=== PATIENT | female | born 1945 | race Caucasian/White ===

== ENCOUNTER 2016-11-16 15:21 | Inpatient (IN) ==
[2016-11-16] MEDS ORDERED: M.V.I.-12 10 ML, FOLIC ACID 1 MG, MAGNESIUM SULFATE 1 GM, THIAMINE 100 MG in NS 1,000 ML IV ONE (16:00)
--- NOTE | 2016-11-16 16:14 | EKG Report ---
Test Performed on : 11/16/2016 3:51:50 PM Test Reason : Weakness Blood Pressure : / mmHG Vent. Rate : 078 BPM Atrial Rate : 068 BPM P-R Int : 000 ms QRS Dur : 084 ms QT Int : 410 ms P-R-T Axes : 000 -05 -36 degrees QTc Int : 467 ms Atrial fibrillation. with a competing junctional pacemaker. ST \T\ T wave abnormality, consider anterior ischemia Abnormal ECG When compared with ECG of 25-JUL-2016 10:27, Previous ECG has undetermined rhythm, needs review Confirmed by Blayne ELLIOTT, Johnson Dickerson ([id number]) on 11/16/2016 6:27:50 PM
[2016-11-16 16:30] LABS: MANUAL DIFF NEEDED? NO
[2016-11-16 16:34] LABS: BASO% 0.4 % (0.0-0.8); EOS# 0.02 X1000 (0.0-0.7); EOS% 0.3 % (0.0-10.0); HEMATOCRIT 34.3 % (37.0-47.0); HEMOGLOBIN 10.6 g/dL (12.0-16.0); LYMPH# 1.15 X1000 (1.2-3.4); LYMPH% 16.2 % (20.5-51.1); MCHC 30.9 g/dL (33-37); MCV 77.6 FL (81-99); MONO# 0.74 X1000 (0.11-0.59); MONO% 10.4 % (1.7-9.3); MPV 9.8 FL (7.4-10.4); NEUT% 72.7 % (42.2-75.2); PLT 274 X1000 (130-400); RBC 4.42 XMIL (4.2-5.4)
[2016-11-16 16:40] LABS: INR 1.26; PROTIME 13.4 Seconds (9.2-11.7); PTT 34.8 Seconds (22.0-36.0)
[2016-11-16 16:49] LABS: AGAP 18; ALBUMIN 3.8 g/dL (3.5-5.0); ALKALINE PHOSPHATASE 82 U/L (32-104); BUN 8 mg/dL (8-22); CALCIUM 9.7 mg/dL (8.8-10.2); CHLORIDE 97 mmol/L (98-107); COSMO 276; GOT 54 U/L (10-30); GPT 35 U/L (10-36); MAGNESIUM 1.7 mg/dL (1.5-2.7); POTASSIUM 3.6 mmol/L (3.5-5.1); SODIUM 139 mmol/L (136-145); TCO2 24 mmol/L (25-35); TOTAL PROTEIN 6.9 g/dL (6.3-8.3)
[2016-11-16 17:10] LABS: FREE T4 1.36 ng/dL (0.93-1.70)
[2016-11-16] MEDS: PROTONIX IV SCH (18:41)
[2016-11-16] MEDS: SODIUM CHLORIDE 0.9% INJ SCH (18:41)
[2016-11-16 19:10] LABS: URINE MICRO REVIEW NEEDED? NO; URINE SOURCE CLEAN CATCH
[2016-11-16 19:14] LABS: BILIRUBIN URINE NEGATIVE (NEGATIVE); BLOOD URINE SMALL (NEGATIVE); COLOR YELLOW; GLUCOSE URINE NEGATIVE (NEGATIVE); LEUKOCYTES URINE MODERATE (NEGATIVE); NITRITE URINE NEGATIVE (NEGATIVE); PH URINE 5.5; PROTEIN URINE TRACE mg/dL (NEGATIVE); SP GRAVITY URINE 1.044; TURBIDITY URINE HAZY (CLEAR); UR EPITHELIAL CELLS <10 /HPF (<10); URINE BACTERIA 3+ /HPF; URINE RBC 20-40 /HPF (<10); URINE WBC TNTC /HPF (<10); UROBILINOGEN URINE 2 mg/dL (NORMAL)
[2016-11-16] MEDS ORDERED: DULCOLAX PR ONE (19:39)
[2016-11-16] MEDS ORDERED: LIBRIUM PO PRN (19:45)
[2016-11-16] MEDS ORDERED: FLEET ENEMA PR ONE (19:57)
[2016-11-16] MEDS ORDERED: AMBIEN PO PRN (20:07)
--- NOTE | 2016-11-16 20:33 | HISTORY AND PHYSICAL ---
CHIEF COMPLAINT: Weakness. HISTORY OF PRESENT ILLNESS: Ms Strickland is a 71-year-old, white female patient, not doing well the last many days. The patient claims she was feeling weak, tired and no energy. Unsteady gait. Oral intake was variable. The patient claims she is still losing weight. She did have some chills. No fever. I recently evaluated patient. At that time, she had low-grade fever. I did workup. The patient found to have UTI and some bronchitis. I treated her with antibiotics. Patient claims she felt some better. Because of her weight loss, we did entertain possibility of Topamax-induced weight loss. The patient was seen by the neurologist who advised her to stopped taking her Topamax which improved her oral intake, but patient is still losing weight. The patient is a very vague and poor historian. She did have dull headache. No dysphagia or odynophagia. Vague abdominal pain. No diarrhea. At times constipation. Denied bleeding per rectum. Mild cough. No expectoration or hemoptysis. No dysuria. At times odor to her urine. She denied any vaginal discharge, spotting, bleeding. No heat or cold intolerance. No nosebleed. The patient does feel depressed, anxious. Patient was drinking heavily. Patient claimed last 2 weeks she stopped drinking completely. She did have some withdrawal, but patient claims she managed it at home. The patient promised me she did not drink any last 2 weeks except yesterday she had 1 drink. Her daughter was present during our conversation. She does have excessive sweating. No heat or cold intolerance. The patient does have complex history, continued weight loss, difficult to pinpoint. Compared to June patient lost around 25-30 pounds of weight. She did have upper and lower GI endoscopy done which was nonconclusive. Her recent chest x-ray did reveal atelectasis. Patient and family were concerned. I decided to admit her for monitoring and workup. I did offer her to go to a psychiatrist as an outpatient. Offered her help for alcohol rehabilitation, but patient refused. ALLERGIES: No known drug allergy. HOME MEDICATION: Lipitor, aspirin, Cymbalta, hydrochlorothiazide, Synthroid, beta blockers metoprolol, multivitamin, potassium, Xarelto. PAST MEDICAL HISTORY: Prosthetic heart valve and coronary artery disease. Hypertension. Hypothyroidism. Hyperlipidemia. Alcohol abuse. Osteoarthritis. Depression. Anxiety. PERSONAL HISTORY: Single. Nonsmoker. The patient used to drink heavily, claimed not drinking for last 2 weeks except 1 drink yesterday. Denied substance abuse. FAMILY HISTORY: Father of lung cancer. Mother of old age. There was questionable history of heart attack. The patient's brother had a stroke at early age. Sister with coronary artery disease. PHYSICAL EXAMINATION: GENERAL: Elderly white female patient who does look mildly cachectic and malnourished, in mild distress. VITAL SIGNS: On admission, blood pressure 163/90, pulse 95, respiration 18, temperature 98.4 degrees. SKIN: Senile turgor. No rash or petechiae. HEENT: Head atraumatic, normocephalic. [place] conjunctivae. Anicteric sclerae. Extraocular muscle movement normal. Fundus cannot be penetrated. Good oral hygiene. No tonsillopharyngeal congestion or exudate. Ears and nose benign. NECK: Supple. No JVD, thyromegaly or lymphadenopathy. CHEST: Bibasilar crepitation. No rales. CARDIOVASCULAR: S1 and S2 heard, 2/6 systolic murmur at the apex. No gallop or thrill. ABDOMEN: Soft, scaphoid. Bowel sounds present. No organomegaly or mass. EXTREMITIES: No cyanosis, clubbing. No acute DVT. Peripheral pulsation intact. STUDENT SERVICES VICE PRESIDENT: Alert, awake, able to move all 4 limbs. Crepitation both the knee joints. LABORATORY DATA: Her workup did reveal hemoglobin 10.6, hematocrit 34.3, MCV 77.6, WBC count 7.1, platelet count 274,000. PT/INR 1.26, PTT 34.8. Electrolytes: BUN 8, creatinine 0.7. AST 54, ALT was 35, TSH 1.95, free T4 1.36. Urinalysis did reveal urinary tract infection. Urine WBCs too numerous to count, 20-40 red blood cells, 3+ bacteria. CONSIDERATION: Patient admitted with weakness, very vague presentation. She does have significant weight loss. My differential includes occult malignancy. Did reveal urinary tract infection not responding to outpatient treatment. ASSESSMENT: 1. Weight loss. 2. Paroxysmal atrial fibrillation. 3. Prosthetic heart valve. 4. Depression. 5. Alcohol abuse. 6. The patient does have essential tremor. Her Topamax was recently discontinued. Her Cymbalta was increase. 7. Osteoarthritis. PLAN: I changed her admission from observation to inpatient because of urinary tract infection not responding to outpatient treatment. Her CT scan preliminary report, subsegmental atelectasis, constipation, cardiomegaly, no evidence of apparent malignancy. This was a preliminary report. I am going to start her on banana bag. Continue the rest of the treatment. IV antibiotics. Fall precaution. Overall plan discussed with the patient and family. They are in agreement. I am going to start her on Librium. The patient claims she is not drinking which considering her alcohol consumption to stop suddenly without help is difficult to believe. I will give her benefit of the doubt and give some support with Librium so she will not go into withdrawal. Fall precaution. cc: Gerald Balderas MD
[2016-11-16] MEDS: ROCEPHIN 1 GM/NS 1 GM/50 ML IVPB IV SCH (21:24)
[2016-11-16] MEDS: CYMBALTA PO SCH (21:25)
[2016-11-16] MEDS: LIPITOR PO SCH (21:26)
--- NOTE | 2016-11-17 06:35 | PROGRESS NOTE ---
DATE: 11/17/2016 SUBJECTIVE: Ms. Strickland is doing better. She denied any nausea or vomiting. The patient did have a bowel movement, the patient is not sure. According to patient, it was small. No blood or mucus in the stool. She denied any chest pain. She had low-grade fever. No nausea. Patient does get weak and dizzy when she gets up. Patient admitted with weakness and unsteady gait. Found to have a UTI. OBJECTIVE: Vital Signs: Her vital signs noted. At times, blood pressure was low. Neck: Supple. No JVD. Lungs: Bilateral good air entry present. Few basal crepitations. CVS: S1 and S2 heard. Abdomen: Soft, globular. Bowel sounds present. Extremities: No cyanosis, clubbing. No acute DVT. CUTCH CLEANER: Alert, awake. Able to move all 4 limbs. Laboratory: Patient's lab data done on admission noted. Urinalysis did reveal UTI. Started patient on IV antibiotics. I am going to continue IV fluid. Close observation. We will supplement thiamine. I had again discussed about her alcohol use and patient refused. PROBLEM LIST: 1. Urinary tract infection. 2. Postural dizziness. We will check postural vital signs. 3. History of alcohol abuse. 4. Prosthetic heart valve. 5. Paroxysmal atrial fibrillation. PLAN: CT scan, preliminary report noted. Discussed fall precaution. Overall plan discussed with the patient. She is in agreement. I did offer her psychiatric evaluation. Patient refused. cc: Gerald Balderas MD
--- NOTE | 2016-11-17 07:49 | Diag Imaging Result Doc PS360 ---
EXAM: THORAX/ABDOMEN/PELVIS HISTORY: Weakness TECHNIQUE: Six CT of the chest with intravenous contrast; CT of the abdomen with intravenous and oral contrast, all with dose reduction (clarity.) COMMENT: There are no previous CT examinations of the thorax. The current studies are compared with the previous abdominal study of 09/07/2016. There is some fibrosis in the posterior costophrenic sulci bilaterally which has not changed since the previous abdominal study. There is a subcentimeter nodule laterally in the left base on image 61 which was also present on the previous abdominal study. This was also present on the CT urogram of 08/27/2010. Otherwise has been there is no evidence of acute pulmonary parenchymal disease. There has been sternotomy. No abnormal fluid collections are present. There are granulomatous calcifications in right paratracheal and hilar nodes. There is cardiomegaly. There is extensive coronary atherosclerosis. There are postsurgical changes in the distal esophagus. CT of the abdomen with intravenous and oral contrast: There has been gastric bypass. Compared to the previous study of 09/07/2016 there has been apparent resolution of the mild interstitial pancreatitis seen around the head of the pancreas. The spleen adrenal glands and liver are stable in appearance. There is atherosclerotic change throughout the abdominal aorta which is otherwise stable since the previous study. There is also calcification in the superior mesenteric artery. The mesenteric vessels are patent. There is a stone present in the lower pole of the right renal collecting system. This was also present previously. Otherwise the kidneys are stable in appearance. There is no evidence of significant adenopathy or bowel obstruction. There continues to be diverticulosis particularly in the left colon. CT of the pelvis with intravenous and oral contrast: There is no evidence of appendicitis. There is no evidence of free fluid or masses. No significant adenopathy is present. The regional skeleton is stable in appearance. There is a fair amount of retained fecal debris in the rectum. IMPRESSION: 1. No evidence of acute disease in the chest. 2. Atherosclerosis, including the superior mesenteric artery. 3. Apparent improvement in interstitial pancreatitis since previous study of 09/07/2016. 4. Constipation. 5. Right nephrolithiasis. Electronically signed by Lester Subramanian 11/17/2016 7:47 AM
--- NOTE | 2016-11-17 07:51 | Diag Imaging Result Doc PS360 ---
CHEST-2 VIEWS - 11/16/2016 INDICATION: Weakness TECHNIQUE: COMPARISON: 11/04/2016 FINDINGS: Stable aortic valve replacement changes. Heart size and pulmonary vascularity are top normal. No focal infiltrates, pneumothorax, or pleural effusion. Stable surgical clips in the epigastrium. IMPRESSION: No acute disease or change from prior. Electronically signed by Eliu Dorantes 11/17/2016 7:48 AM
[2016-11-17] MEDS: LINZESS PO ONE ×2 (07:58→07:59)
[2016-11-17] MEDS: NS + KCL 20 MEQ 1,000 ML IV SCH ×2 (07:59→21:33)
[2016-11-17] MEDS: HYDROCHLOROTHIAZIDE PO SCH (08:35)
[2016-11-17] MEDS: ASPIRIN PO SCH (08:36)
[2016-11-17] MEDS: VITAMIN B-1 PO SCH (08:36)
[2016-11-17] MEDS: KLOR-CON PO SCH (08:36)
[2016-11-17] MEDS: THERA M PLUS PO SCH (08:37)
[2016-11-17] MEDS: CYMBALTA PO SCH ×2 (08:37→21:34)
[2016-11-17] MEDS: SYNTHROID PO SCH (08:37)
[2016-11-17] MEDS ORDERED: HYDROCHLOROTHIAZIDE PO SCH (09:00)
[2016-11-17] MEDS ORDERED: LOPRESSOR PO SCH (09:00)
[2016-11-17] MEDS: XARELTO PO SCH (16:46)
[2016-11-17] MEDS: PROTONIX IV SCH (16:46)
[2016-11-17] MEDS: SODIUM CHLORIDE 0.9% INJ SCH (16:46)
[2016-11-17] MEDS: ROCEPHIN 1 GM/NS 1 GM/50 ML IVPB IV SCH (21:34)
[2016-11-17] MEDS: LIPITOR PO SCH (21:34)
--- NOTE | 2016-11-18 07:34 | PROGRESS NOTE ---
DATE: 11/18/2016 SUBJECTIVE: Ms. Strickland is feeling better. She denied any high-grade fever or chills. No nausea or vomiting. Oral intake is improving. Her weakness is improving. No bleeding. The patient does have postural hypotension. OBJECTIVE: Vital Signs: Vital signs noted. Neck: Supple. No JVD. Lungs: Bilateral good air entry present. CVS: S1 and S2 heard. A 2/6 systolic murmur at the apex. Abdomen: Soft, globular. Bowel sounds present. LEAD MECHANICAL ENGINEER: Alert, awake. Able to move all 4 limbs. Laboratory Data: I am going to order labs today. PLAN: Continue rest of the treatment. I am going to add Remeron to help her depression and appetite. Change her Librium to p.r.n. Continue rest of the treatment. Discussed about fall precautions. Her urine culture result is pending. Overall plan discussed with the patient. She is in agreement. cc: Gerald Balderas MD
[2016-11-18 07:50] LABS: MANUAL DIFF NEEDED? NO
[2016-11-18 07:52] LABS: BASO% 0.9 % (0.0-0.8); EOS# 0.09 X1000 (0.0-0.7); EOS% 2.1 % (0.0-10.0); HEMATOCRIT 31.8 % (37.0-47.0); HEMOGLOBIN 9.5 g/dL (12.0-16.0); LYMPH# 1.45 X1000 (1.2-3.4); LYMPH% 33.6 % (20.5-51.1); MCH 23.5 PG (27-31); MCHC 29.9 g/dL (33-37); MCV 78.5 FL (81-99); MONO# 0.65 X1000 (0.11-0.59); MONO% 15.1 % (1.7-9.3); MPV 9.1 FL (7.4-10.4); NEUT% 48.3 % (42.2-75.2); PLT 242 X1000 (130-400); RBC 4.05 XMIL (4.2-5.4)
[2016-11-18 08:21] LABS: AGAP 12; ALBUMIN 3.4 g/dL (3.5-5.0); ALKALINE PHOSPHATASE 69 U/L (32-104); BUN 4 mg/dL (8-22); CALCIUM 8.8 mg/dL (8.8-10.2); CHLORIDE 105 mmol/L (98-107); COSMO 283; GOT 40 U/L (10-30); GPT 28 U/L (10-36); MAGNESIUM 1.9 mg/dL (1.5-2.7); POTASSIUM 3.6 mmol/L (3.5-5.1); SODIUM 144 mmol/L (136-145); TCO2 27 mmol/L (25-35); TOTAL BILIRUBIN 0.45 mg/dL (0.20-1.00); TOTAL PROTEIN 6.1 g/dL (6.3-8.3)
[2016-11-18] MEDS: KLOR-CON PO SCH (09:00)
[2016-11-18] MEDS: HYDROCHLOROTHIAZIDE PO SCH (09:00)
[2016-11-18] MEDS: THERA M PLUS PO SCH (09:00)
[2016-11-18] MEDS: VITAMIN B-1 PO SCH (09:00)
[2016-11-18] MEDS: SYNTHROID PO SCH (09:00)
[2016-11-18] MEDS: LOPRESSOR PO SCH ×3 (09:00→21:59)
[2016-11-18] MEDS ORDERED: LANOXIN IV ONE (09:30)
[2016-11-18] MEDS ORDERED: LANOXIN IV SCH (09:30)
--- NOTE | 2016-11-18 10:21 | EKG Report ---
Test Performed on : 11/18/2016 09:36:36 AM Test Reason : A-Fib Blood Pressure : / mmHG Vent. Rate : 092 BPM Atrial Rate : 079 BPM P-R Int : 000 ms QRS Dur : 084 ms QT Int : 352 ms P-R-T Axes : 000 -17 235 degrees QTc Int : [address] \T\ T wave abnormality, consider anterior ischemia Abnormal ECG When compared with ECG of 16-NOV-2016 15:51, No significant change was found Confirmed by Blayne ELLIOTT, Johnson Dickerson ([id number]) on 11/21/2016 12:38:19 PM
[2016-11-18] MEDS ORDERED: NS 1,000 ML IV SCH (11:44)
--- NOTE | 2016-11-18 12:26 | CONSULTATION ---
DATE OF CONSULTATION: 11/18/2016 INDICATION FOR THE CONSULTATION: Atrial fibrillation. HISTORY OF PRESENT ILLNESS: Ms. Strickland is a 71-year-old white female with a history of chronic atrial fibrillation, history of coronary artery bypass as well as aortic valve replacement secondary to aortic stenosis. She was admitted for what appears to be a diffuse myriad of complaints which can the best, I believe, summed up as failure to thrive. The patient has reported weight loss, decreased appetite, weakness, and general lethargy as well as an increased amount of alcohol intake. She reports 4-5 alcoholic drinks daily for several months up until around 2 weeks ago, when she quit. She reports decreased oral intake secondary to just not eating. She denies any overt abdominal pain, nausea, or vomiting. She has not had any recent fevers, but does denote some issues with dysuria as well as urinary frequency. She has not had any increased episodes of chest pain, nor has she had any syncope. There have been no issues with heart racing. She has a chronic history of atrial fibrillation. PAST MEDICAL HISTORY: Significant for: 1. Chronic atrial fibrillation. 2. History of severe aortic stenosis, status post aortic valve replacement with a [employer] Trifecta pericardial valve with a 19 mm dimension. That was in November 2013. 3. History of coronary bypass, with original bypass in 1993 and subsequent repeat in 2013, at the time of the valve replacement. 4. History of pulmonary hypertension. 5. Carotid artery disease. 6. Hypertension. 7. Dyslipidemia. 8. Obesity. 9. Sleep apnea. 10. Reflux disease. SOCIAL HISTORY: She is single. Nonsmoker. Reports last drink 2 weeks ago, but to Dr. Balderas she reported 1 drink yesterday. No illicit substances. FAMILY HISTORY: Father had lung cancer. Mother of old age. REVIEW OF SYSTEMS: A 10-system review of systems is negative except for those mentioned in the HPI. PHYSICAL EXAMINATION: Vital Signs: She is afebrile. Her heart rates have been documented anywhere from the 70s to 90s and her telemetry seems consistent with that. Blood pressure 126/62. Notably, she was orthostatic today with a supine blood pressure of 120/61 and a standing of 91/48. We do not have accurate heart rates, as she has a 106 and a 277 documented. General: She is in no acute distress. She is a somewhat ill-appearing, older than stated age, white female. HEENT: Oropharynx is moist. Normal dentition. Eye examination shows pink conjunctivae, white sclerae. Neck: Examination shows no obvious thyromegaly or thyroid tenderness. Cardiovascular: She is in an irregular rate and rhythm. She is mildly tachycardic. Telemetry currently denotes her to be in the 110s to 120s. She has no lower extremity edema. Chest: Clear bilaterally. She has poor inspiratory effort. No increased work of breathing. Abdomen: Soft, nontender, and nondistended. She has no obvious organomegaly. Skin: Warm and dry throughout. Neurological: Moving all extremities well. Cranial nerves 2-12 are intact, without any sensation deficits. Psychiatric: Alert, oriented, pleasant. PERTINENT DATA: EKG initially on 11/16/2016 at 1551 shows atrial fibrillation. Rate is 78 beats per minute. Some anteroseptal T-wave inversions noted. Subsequent EKG 11/18/2016 at 9:36 shows atrial fibrillation, rate of 92 beats per minute. No other changes. Laboratory data shows a white count of 4.3, hematocrit 31.8, platelet count of 242,000. INR 1.26. Sodium 144, potassium 3.6, BUN 4, creatinine 0.5. Her albumin is 3.4 today. Mag level is 1.9. Urinalysis was reviewed and had nci-[id number]-count WBCs as well as 3+ bacteria. ASSESSMENT: 1. Failure to thrive. 2. Chronic atrial fibrillation. 3. Alcohol abuse. PLAN: The patient certainly could have failure to thrive and her general symptomatology from multiple issues. This could be related to a urinary tract infection, but she has had symptoms for much longer. This could be alcohol-related, seeing as how she had a excessive amount of alcohol intake for months with reduced oral intake that could have resulted in her weight loss. In addition, abrupt cessation of alcohol could be triggering some mild withdrawal, which could be the source of her elevated heart rate. For now, I would continue her on her current medications. She was tilt-positive today, so I would try resuscitating her with fluids. We will do 125 mL an hour of normal saline x1 liter initially. She has a normal ejection fraction in the past. We will re- evaluate her echo to evaluate EF as well as the aortic valve replacement. Most likely, I believe the overall etiology of these issues is noncardiac, but we will try to make a reasonable assessment. cc: MD Gerald Mobley MD
[2016-11-18] MEDS: CYMBALTA PO SCH ×2 (12:33→22:39)
[2016-11-18] MEDS: ASPIRIN PO SCH (12:35)
[2016-11-18] MEDS: XARELTO PO SCH (17:31)
[2016-11-18] MEDS: SODIUM CHLORIDE 0.9% INJ SCH (17:32)
[2016-11-18] MEDS: PROTONIX IV SCH (17:32)
[2016-11-18] MEDS: REMERON PO SCH (21:57)
[2016-11-18] MEDS: LIPITOR PO SCH (21:58)
[2016-11-18] MEDS: ROCEPHIN 1 GM/NS 1 GM/50 ML IVPB IV SCH (21:59)
--- NOTE | 2016-11-19 07:24 | PROGRESS NOTE ---
DATE: 11/19/2016 SUBJECTIVE: Ms. Strickland is doing better. The patient had an episode of atrial fibrillation with rapid VR. I gave her one dose of Lanoxin. I started her on Remeron. The patient claims she slept well. Her heart rate is still elevated. I am going to increase her Lopressor to 100 mg in the morning and 50 mg in the evening. Hotel Assistant General Manager following patient with us. She denied any typical chest pain. She denied any urge to drink alcohol. No symptoms of withdrawal, though cannot be ruled out. With her postural hypotension, I am going to stopped her HCTZ. No nausea, vomiting. She denied any diarrhea. No dysuria. No high-grade fever or chills. OBJECTIVE: Her vital signs reviewed. Neck supple. No JVD. Lungs: Bilateral good air entry present. CVS: S1 and S2 heard. Abdomen soft. No distention. Bowel sounds present. Extremities: No cyanosis, clubbing. No acute DVT. OBSTETRICS SCRUB NURSE: Alert, awake, able to move all 4 limbs. CONSIDERATION: Atrial fibrillation with rapid ventricular response. At times, her postural blood pressure does not make sense. Her supine blood pressure was 110; standing 156 and sitting 170. Other times, standing 83 and supine 124. I am going to recommend thigh-high TAB Hose at the time of discharge. Hopefully, stopping diuretics may help. OTHER PROBLEMS: 1. Postural hypotension. 2. Alcohol abuse. 3. Depression. Remeron seems to be helping. 4. Gastritis. PLAN: Overall plan discussed with the patient. She is in agreement. cc: Gerald Balderas MD
[2016-11-19] MEDS: SYNTHROID PO SCH (10:05)
[2016-11-19] MEDS: ASPIRIN PO SCH (10:05)
[2016-11-19] MEDS: CYMBALTA PO SCH ×2 (10:05→21:41)
[2016-11-19] MEDS: KLOR-CON PO SCH (10:05)
[2016-11-19] MEDS: VITAMIN B-1 PO SCH (10:06)
[2016-11-19] MEDS: THERA M PLUS PO SCH (10:06)
[2016-11-19] MEDS: LOPRESSOR PO SCH ×3 (10:06→19:40)
--- NOTE | 2016-11-19 10:36 | ECHO REPORT ---
ORDER DATE: 11/18/2016 INTERPRETING PHYSICIAN: Dr. Lambert. CLINICAL INDICATIONS: A 71-year-old female with atrial fibrillation, hypotension, status post aortic valve replacement. M-MODE MEASUREMENTS: Right ventricle: 2.9 cm. Left ventricle end diastole: 3.1 cm. Left ventricle end systole: 2.4 cm. Posterior wall: 1.3 cm. Interventricular septum: 1.3 cm. Left atrium: 5.1 cm. Aortic root: 3.6 cm. SUMMARY OF 2-DIMENSIONAL IMAGIN. The study is technically difficult. This patient is not hemodynamically stable. She is in atrial fibrillation with a rapid response. The rates fluctuate from 130 to 160 according to the echo monitor. 2. The left ventricle is hyperdynamic, ejection fraction is 75%. 3. The aortic valve appears to be a tissue bioprosthetic valve. Maximum gradient appears to be as much as 40 mmHg. The mean gradient is about 23 mmHg. That is probably normal. Some of the Doppler pattern may suggest a dynamic gradient at the level of the outflow tract of the left ventricle. The valve is functioning properly. There is no aortic regurgitation. 4. The pulmonic valve appears to be grossly normal with a mild degree of regurgitation. 5. The tricuspid valve shows a moderate to moderately severe degree of regurgitation. The inferior vena cava is borderline enlarged. The pulmonary pressure is estimated to be somewhere in the range of 86-91 mmHg. 6. The mitral valve shows a mild to moderate degree of regurgitation. 7. The left atrium is significantly enlarged. 8. There is no pericardial effusion, masses, nor thrombus. 9. The right atrium is also moderately enlarged. CONCLUSIONS: In summary, this study shows: 1. Patient in atrial fibrillation with a rapid response. The study is technically difficult. 2. The left ventricle is hyperdynamic, ejection fraction of 75%. 3. There is significant pulmonary hypertension in the order of 86-91 mmHg. 4. There is enlargement of both atria, moderately to significantly enlarged. 5. Diastolic function cannot be evaluated in this case. 6. Bioprosthetic aortic valve appears to be functioning properly. 7. This study should be repeated when the patient is stabilized from the viewpoint of her rapid atrial fibrillation. cc: MD Peter Condon MD Bharat K. Vakharia, MD
[2016-11-19] MEDS: PROTONIX IV SCH (15:11)
[2016-11-19] MEDS: SODIUM CHLORIDE 0.9% INJ SCH (15:11)
[2016-11-19] MEDS: XARELTO PO SCH ×2 (15:11→17:56)
--- NOTE | 2016-11-19 15:37 | PROGRESS NOTE ---
DATE: 11/19/2016 SUBJECTIVE: Ms. Strickland reports she feels well today. She still has limited oral intake with solid food, but reports good liquid intake. PHYSICAL EXAMINATION: Vital Signs: She is afebrile. Her heart rate is 75, blood pressure 121/76. She had orthostatic vital signs performed at 3 p.m. today that were negative for orthostasis. Heart rates over the last 24 hours appeared to be reasonably well controlled with 1 rate above 120 and the rest of them ranging in the 70s to 110s predominantly. General: No acute distress. Cardiovascular: She is in an irregularly irregular rhythm. It is rate controlled. She has no murmurs. She has no lower extremity edema. Chest: Clear bilaterally. No increased work of breathing. Abdomen: Soft, nontender, nondistended. She has no obvious organomegaly. PERTINENT DATA: She had an echocardiogram yesterday demonstrating a preserved ejection fraction of 75%. She had an RV systolic pressure that was markedly elevated in the mid 80s to 90s. She had enlargement of both atria. Bioprosthetic aortic valve looked to be in good condition. Her laboratory data demonstrates that she has had no recent labs today. ASSESSMENT: 1. Atrial fibrillation that is chronic. 2. Failure to thrive. PLAN: Again patient's heart rate seems reasonably well controlled, based on the vitals and the data that we have. Issues contributing to potential episodes of elevated heart rate could be volume depletion or possibly alcohol withdrawal. Based on evaluation today, her withdrawal seems reasonably well controlled, if that is in fact going on. In addition, she is no longer tilt positive. So I believe she has been adequately resuscitated from a volume standpoint. Her beta- cj has been escalated by the primary physician up to 50 mg in the evening with 100 mg in the morning, and I think that is a reasonable adjustment so far. I have no further recommendations at this time. cc: MD Gerald Mobley MD
[2016-11-19] MEDS: REMERON PO SCH (21:42)
[2016-11-19] MEDS: LIPITOR PO SCH (21:42)
[2016-11-19] MEDS: ROCEPHIN 1 GM/NS 1 GM/50 ML IVPB IV SCH (21:42)
[2016-11-20] MEDS: ASPIRIN PO SCH (10:52)
[2016-11-20] MEDS: THERA M PLUS PO SCH (10:52)
[2016-11-20] MEDS: LOPRESSOR PO SCH (10:53)
[2016-11-20] MEDS: KLOR-CON PO SCH (10:53)
[2016-11-20] MEDS: CYMBALTA PO SCH (10:54)
[2016-11-20] MEDS: VITAMIN B-1 PO SCH (10:54)
[2016-11-20] MEDS: SYNTHROID PO SCH (10:54)
[2016-11-20 11:28] VITALS: BP 141/59
--- NOTE | 2016-11-20 13:04 | PROGRESS NOTE ---
DATE: 11/20/2016 The next patient is in for a 73 BP missed arborized on insulin. Is SUBJECTIVE: Ms. Strickland's urine culture had shown E. faecalis, which was sensitive to nitrofurantoin, and she is feeling better. Her vital signs are stable. I am going to discharge her today. -2 cc: MD Gerald Mesa MD
--- NOTE | 2017-01-05 09:51 | DISCHARGE SUMMARY ---
ADMISSION DATE: 11/16/2016 DISCHARGE DATE: 11/20/2016 FINAL DISCHARGE DIAGNOSES: 1. Paroxysmal atrial fibrillation. 2. Prosthetic heart valve. 3. Gastritis. 4. Depression. 5. Alcohol abuse. 6. Essential tremor. 7. Osteoarthritis. HISTORY OF PRESENT ILLNESS: Ms. Strickland is a 71-year-old, white female patient, not doing well last many days. The patient was feeling weak, tired and no energy. Unsteady gait. Oral intake was variable. Patient was losing weight. Patient had essential tremor, epigastric discomfort. The patient was not responding to outpatient treatment. The patient claims she stopped drinking alcohol a few weeks ago. As patient was not responding to outpatient treatment, I decided to admit the patient for further care. HOSPITAL COURSE: Patient was treated with IV hydration, symptomatic care, close observation. DT precaution and seizure precaution. I also gave her some Librium and Ativan on p.r.n. basis. The patient tolerated medication well. She did have an episode of atrial fibrillation with rapid ventricular response. Cardiology consult obtained with Dr. Strickland. The patient found to have UTI which was treated appropriately. We resumed her beta cj. Her heart rate improved. Overall patient received maximum benefit of hospitalization, and we decided to discharge the patient home. She did have postural hypotension and we hydrated the patient. LAB DATA: Revealed the last hemoglobin 9.5, hematocrit 31.8, WBC count 4.31, platelet count 242. PT/INR 1.26. PTT was 34.8. Electrolytes were fairly benign. The AST was 40, ALT was 28, TSH 1.95, free T4 was 1.36. Too numerous to count WBC in the urine. Moderate leukocyte. 3+ bacteria. Urine culture grew Enterococcus faecalis. X-RAY DATA: The patient had a CT scan of the abdomen and pelvis done and also the chest done. No evidence of acute disease in the chest. Atherosclerosis including the superior mesenteric artery. Apparent improvement in the interstitial pancreatitis since previous study, constipation, right nephrolithiasis. OVERALL DISCHARGE CONDITION: Satisfactory. FOLLOW UP: The patient was advised to come for followup in 10 days. Not to drink alcohol. Take medicine regularly. In case of more distress, call us back or go to the emergency room. cc: Gerald Balderas MD
== END 2016-11-20 13:09 | disposition home or self-care (01) ==
LOC: DIRADM → 4N 15:21
PROVIDERS: ADMIT Internal Medicine; ATTEND Internal Medicine

== ENCOUNTER 2017-03-22 13:49 | Inpatient (IN) ==
[2017-03-22] MEDS ORDERED: CARDIZEM IV ONE (14:05)
[2017-03-22] MEDS ORDERED: NS 500 ML ONE (14:18)
[2017-03-22] MEDS ORDERED: NS 500 ML IV ONE (14:19)
[2017-03-22 14:27] LABS: BASO% 1.5 % (0.0-0.8); EOS# 0.05 X1000 (0.0-0.7); EOS% 1.5 % (0.0-10.0); HEMATOCRIT 24.8 % (37.0-47.0); HEMOGLOBIN 6.7 g/dL (12.0-16.0); LYMPH# 0.99 X1000 (1.2-3.4); MANUAL DIFF NEEDED? NO; MCH 17.5 PG (27-31); MCV 64.8 FL (81-99); MONO# 0.69 X1000 (0.11-0.59); MONO% 20.2 % (1.7-9.3); MPV 9.8 FL (7.4-10.4); NEUT% 47.8 % (42.2-75.2); PLT 148 X1000 (130-400); RBC 3.83 XMIL (4.2-5.4)
--- NOTE | 2017-03-22 14:30 | Diag Imaging Result Doc PS360 ---
EXAM: CHEST-PORTABLE HISTORY: rapid afib- dyspnea TECHNIQUE: Portable upright COMPARISON: 11/16/2016 FINDINGS: There are sternal wires and surgical clips. Heart is prominent. Mild vascular distention. No consolidation. No pleural effusions identified. IMPRESSION: Prominent heart with pulmonary edema. Electronically signed by Jose Daniel Rosa 03/22/2017 2:28 PM
[2017-03-22 14:42] LABS: INR 1.24; PROTIME 13.2 Seconds (9.2-11.7)
[2017-03-22 14:44] LABS: AGAP 17; ALBUMIN 3.6 g/dL (3.5-5.0); ALKALINE PHOSPHATASE 132 U/L (32-104); BUN 6 mg/dL (8-22); CALCIUM 8.9 mg/dL (8.8-10.2); CHLORIDE 98 mmol/L (98-107); COSMO 274; GOT 54 U/L (10-30); GPT 23 U/L (10-36); MAGNESIUM 1.9 mg/dL (1.5-2.7); POTASSIUM 3.5 mmol/L (3.5-5.1); SODIUM 138 mmol/L (136-145); TCO2 23 mmol/L (25-35); TOTAL BILIRUBIN 1.28 mg/dL (0.20-1.00); TOTAL PROTEIN 7.1 g/dL (6.3-8.3)
--- NOTE | 2017-03-22 15:30 | EKG Report ---
Test Performed on : 03/22/2017 1:48:58 PM Test Reason : ED. Not ordered in [place] Blood Pressure : / mmHG Vent. Rate : 150 BPM Atrial Rate : 166 BPM P-R Int : 000 ms QRS Dur : 084 ms QT Int : 320 ms P-R-T Axes : 000 -34 204 degrees QTc Int : 505 ms Atrial fibrillation. with rapid ventricular response. Left axis deviation ST \T\ T wave abnormality, consider lateral ischemia Abnormal ECG When compared with ECG of 16-MAR-2017 16:14, Vent. rate has increased BY 72 BPM T wave inversion no longer evident in Anterior leads Unconfirmed Result
--- NOTE | 2017-03-22 15:49 | Diag Imaging Result Doc PS360 ---
EXAM: CT HEAD W/O CONTRAST INDICATION: lethargy- recent trauma TECHNIQUE: Dose reduction protocol was used. COMPARISON: None. FINDINGS: There is mild patchy low attenuation in the periventricular white matter suggesting mild microangiopathy. There is no definite acute infarct given the limited sensitivity of CT versus MRI. There is no discrete intracranial mass, mass effect, or intracranial hemorrhage. The surrounding soft tissues and bony structures are essentially unremarkable. IMPRESSION: Suggestion of mild periventricular white matter microangiopathy. No definite acute intracranial pathology. Electronically signed by Magno Browning 03/22/2017 3:47 PM
[2017-03-22 16:49] LABS: IRON SATURATION 3 %; TIBC 356 ug/dL; TOTAL IRON 12 ug/dL (49-151); UNBOUND IRON 344 ug/dL (112-346)
[2017-03-22 17:08] LABS: RETIC-HE 15.4 PG (28.2-36.6)
[2017-03-22 17:15] LABS: FERRITIN 26 ng/mL (13-150)
[2017-03-22 17:26] LABS: HEMOGLOBIN A1C 4.9 % (4.8-6.0)
[2017-03-22] MEDS ORDERED: ZOFRAN IV PRN (17:33)
[2017-03-22] MEDS: PROTONIX 80 MG in NS 80 ML IV SCH (17:45)
[2017-03-22] MEDS ORDERED: CARDIZEM 100 MG/NS 100 MG/100 ML IVPB ONE (17:48)
[2017-03-22] MEDS: CARDIZEM 100 MG/NS 100 MG/100 ML IVPB IV SCH (17:58)
[2017-03-22] MEDS: TYLENOL PO PRN (18:09)
[2017-03-22 18:10] LABS: URINE MICRO REVIEW NEEDED? NO; URINE SOURCE CATH
[2017-03-22] MEDS ORDERED: TYLENOL ONE (18:11)
[2017-03-22 18:17] LABS: BILIRUBIN URINE NEGATIVE (NEGATIVE); BLOOD URINE NEGATIVE (NEGATIVE); COLOR YELLOW; GLUCOSE URINE NEGATIVE (NEGATIVE); LEUKOCYTES URINE NEGATIVE (NEGATIVE); NITRITE URINE NEGATIVE (NEGATIVE); PH URINE 5.5; PROTEIN URINE NEGATIVE (NEGATIVE); SP GRAVITY URINE 1.003; TURBIDITY URINE CLEAR (CLEAR); UR EPITHELIAL CELLS <10 /HPF (<10); URINE BACTERIA NEGATIVE /HPF; URINE RBC <10 /HPF (<10); URINE WBC <10 /HPF (<10); UROBILINOGEN URINE NORMAL (NORMAL)
--- NOTE | 2017-03-22 18:43 | Diag Imaging Result Doc PS360 ---
EXAM: CT THORAX/ABDOMEN/PELVIS INDICATION: sob; abd pain TECHNIQUE: Dose reduction protocol was used. COMPARISON: 11/16/2016 FINDINGS: CHEST: There are bilateral small pleural effusions and mild bibasilar atelectasis. There are fine groundglass nodular opacities scattered throughout both lungs that was not present on the previous study. There are nonspecific but they may represent an atypical infectious process. There is a better defined 4 mm nodule at the peripheral left lung base that is stable. There is mild interstitial thickening suggesting mild edema. There is stable cardiomegaly. There are calcified mediastinal lymph nodes indicating prior granulomatous disease. ABDOMEN/PELVIS: There are postsurgical changes related to a prior gastric bypass. There has been a previous cholecystectomy. The liver is grossly unremarkable. There is a small amount of fluid tracking around the liver and the spleen and layering in the pelvis. There are multiple calcified granulomata in the spleen. The spleen is not enlarged. The pancreas and adrenal glands are unremarkable. There is a stable nonobstructing intrarenal stone on the right. There is no hydronephrosis. The urinary bladder is grossly unremarkable. There are scattered colonic diverticula but there is no evidence of diverticulitis. There is no evidence of bowel obstruction. Otherwise, the GI tract is essentially unremarkable. There is extensive aortic atherosclerotic calcification. There is no evidence of aortic aneurysm. There is body wall soft tissue anasarca. IMPRESSION: 1.Vaguely nodular infiltrate throughout both lungs that is nonspecific but probably represents an atypical infectious process. 2.Suggestion of mild interstitial pulmonary edema. 3.Bilateral small pleural effusions and bibasilar atelectasis. 4.Small volume ascites tracking around the liver and spleen and layering in the pelvis. 5.Body wall anasarca. 6.Other incidental/nonacute findings detailed above. Electronically signed by Mango Browning 03/22/2017 6:41 PM
[2017-03-22] MEDS: CARAFATE LIQUID PO SCH ×2 (19:26→19:28)
[2017-03-22] MEDS: THIAMINE 100 MG in NS 50 ML IV SCH (19:26)
[2017-03-22] MEDS ORDERED: NS 250 ML ONE (20:13)
[2017-03-22] MEDS: CYMBALTA PO SCH (20:55)
[2017-03-22] MEDS: ATIVAN IV PRN (21:37)
[2017-03-22] MEDS ORDERED: LASIX IV ONE (22:00)
[2017-03-23 00:05] LABS: HEMATOCRIT 26.3 % (37.0-47.0); HEMOGLOBIN 7.5 g/dL (12.0-16.0)
[2017-03-23] MEDS: CARAFATE LIQUID PO SCH ×4 (01:36→20:00)
[2017-03-23] MEDS: PROTONIX 80 MG in NS 80 ML IV SCH ×3 (03:35→23:00)
[2017-03-23 04:34] LABS: ALLEN TEST YES; BE 5.3 mmoll (-3.0-3.0); BLOOD TYPE ARTERIAL; DRAW SITE R RADIAL; METHB 0.9 % (0.0-1.5); O2(CT) 10.5 mL/dL (15.0-23.0); PCO2(98.6) 36 mmHg (35-45); PO2(98.6) 71 mmHg (60-100); SAMPLE BLOOD; SAO2 97.4 % (95.0-100.0); THB 7.8 g/dL (11.5-17.4); pH(98.6) 7.51 (7.35-7.45)
[2017-03-23 04:36] LABS: MODALITY ROOM AIR
[2017-03-23 04:49] LABS: INR 1.25; PROTIME 13.3 Seconds (9.2-11.7)
[2017-03-23] MEDS: CARDIZEM 100 MG/NS 100 MG/100 ML IVPB IV SCH (04:54)
[2017-03-23 04:56] LABS: BASO% 1.1 % (0.0-0.8); EOS# 0.12 X1000 (0.0-0.7); EOS% 3.3 % (0.0-10.0); HEMOGLOBIN 7.4 g/dL (12.0-16.0); LYMPH# 0.91 X1000 (1.2-3.4); LYMPH% 25.1 % (20.5-51.1); MANUAL DIFF NEEDED? YES; MCH 19.1 PG (27-31); MCHC 28.5 g/dL (33-37); MONO% 16.6 % (1.7-9.3); MPV 9.8 FL (7.4-10.4); NEUT% 53.9 % (42.2-75.2); PLT 146 X1000 (130-400); RBC 3.88 XMIL (4.2-5.4)
[2017-03-23 05:24] LABS: AGAP 12; ALBUMIN 3.2 g/dL (3.5-5.0); ALKALINE PHOSPHATASE 119 U/L (32-104); BUN 5 mg/dL (8-22); CALCIUM 8.2 mg/dL (8.8-10.2); CHLORIDE 99 mmol/L (98-107); COSMO 273; GOT 55 U/L (10-30); GPT 20 U/L (10-36); MAGNESIUM 1.8 mg/dL (1.5-2.7); POTASSIUM 3.1 mmol/L (3.5-5.1); SODIUM 138 mmol/L (136-145); TCO2 27 mmol/L (25-35); TOTAL BILIRUBIN 1.75 mg/dL (0.20-1.00); TOTAL PROTEIN 6.2 g/dL (6.3-8.3)
[2017-03-23 05:26] LABS: EOS 8 % (1-10); LYMPHS 24 % (21-51); MONO 4 % (1-9)
[2017-03-23 05:27] LABS: HYPOCHROM 2+
[2017-03-23] MEDS: SYNTHROID PO SCH (06:01)
--- NOTE | 2017-03-23 07:24 | Diag Imaging Result Doc PS360 ---
CHEST-PORTABLE - 03/23/2017 INDICATION: pulmonary edema TECHNIQUE: COMPARISON: 03/22/2017 FINDINGS: Stable surgical changes to the heart. Stable cardiomegaly and pulmonary vascular congestion. No infiltrates or edema. No large effusion. IMPRESSION: Cardiomegaly and pulmonary vascular congestion. Electronically signed by Eliu Dorantes 03/23/2017 7:22 AM
[2017-03-23] MEDS ORDERED: KLOR-CON PO ONE (08:00)
--- NOTE | 2017-03-23 08:49 | EKG Report ---
Test Performed on : 03/23/2017 06:52:21 AM Test Reason : Heart Failure Admission; afib Blood Pressure : / mmHG Vent. Rate : 101 BPM Atrial Rate : 093 BPM P-R Int : 000 ms QRS Dur : 084 ms QT Int : 364 ms P-R-T Axes : 000 -12 180 degrees QTc Int : 471 ms Atrial fibrillation. with rapid ventricular response. ST \T\ T wave abnormality, consider lateral ischemia Abnormal ECG When compared with ECG of 22-MAR-2017 13:48, (Unconfirmed) ST now depressed in Anterior leads Nonspecific T wave abnormality now evident in Anterior leads Confirmed by Mart ELLIOTT, Roni Joseph ([id number]) on 03/25/2017 6:38:06 AM
[2017-03-23] MEDS: CYMBALTA PO SCH ×2 (09:11→20:01)
[2017-03-23] MEDS: LOPRESSOR PO SCH ×3 (09:13→20:00)
[2017-03-23] MEDS: ALDACTONE PO SCH ×2 (09:13→20:00)
[2017-03-23] MEDS: VENOFER IV SCH (09:13)
[2017-03-23] MEDS: LASIX IV SCH ×2 (09:13→20:01)
[2017-03-23] MEDS: LANOXIN IV SCH ×3 (09:14→20:00)
[2017-03-23] MEDS: TYLENOL PO PRN (11:08)
[2017-03-23 11:11] LABS: HEMATOCRIT 27.4 % (37.0-47.0); HEMOGLOBIN 7.8 g/dL (12.0-16.0)
[2017-03-23 12:57] LABS: HEPATITIS PROFILE ACUTE SEE COMMENTS
[2017-03-23 17:15] LABS: HEMATOCRIT 25.2 % (37.0-47.0); HEMOGLOBIN 7.2 g/dL (12.0-16.0)
[2017-03-23] MEDS: THIAMINE 100 MG in NS 50 ML IV SCH (17:45)
[2017-03-23] MEDS: ATIVAN IV PRN (20:05)
[2017-03-23 23:51] LABS: HEMATOCRIT 25.9 % (37.0-47.0); HEMOGLOBIN 7.4 g/dL (12.0-16.0)
[2017-03-24] MEDS: CARDIZEM 100 MG/NS 100 MG/100 ML IVPB IV SCH (01:27)
[2017-03-24] MEDS: LOPRESSOR PO SCH ×4 (02:35→21:37)
[2017-03-24] MEDS: CARAFATE LIQUID PO SCH ×4 (02:35→21:36)
[2017-03-24 05:07] LABS: BASO% 0.5 % (0.0-0.8); EOS# 0.18 X1000 (0.0-0.7); EOS% 4.7 % (0.0-10.0); HEMATOCRIT 27.2 % (37.0-47.0); HEMOGLOBIN 7.8 g/dL (12.0-16.0); LYMPH% 20.9 % (20.5-51.1); MANUAL DIFF NEEDED? YES; MCH 19.4 PG (27-31); MCHC 28.7 g/dL (33-37); MCV 67.7 FL (81-99); MONO# 0.72 X1000 (0.11-0.59); MONO% 18.8 % (1.7-9.3); NEUT% 55.1 % (42.2-75.2); PLT 128 X1000 (130-400); RBC 4.02 XMIL (4.2-5.4)
[2017-03-24 05:25] LABS: AGAP 9; BUN 7 mg/dL (8-22); CHLORIDE 100 mmol/L (98-107); COSMO 273; POTASSIUM 3.5 mmol/L (3.5-5.1); SODIUM 138 mmol/L (136-145); TCO2 29 mmol/L (25-35)
[2017-03-24 06:19] LABS: LYMPHS 25 % (21-51); MONO 6 % (1-9); POLYCHROM OCCASIONAL
[2017-03-24] MEDS: SYNTHROID PO SCH (06:24)
--- NOTE | 2017-03-24 07:08 | EKG Report ---
Test Performed on : 03/24/2017 05:37:10 AM Test Reason : Heart Failure Admission; afib Blood Pressure : / mmHG Vent. Rate : 073 BPM Atrial Rate : 073 BPM P-R Int : 000 ms QRS Dur : 082 ms QT Int : 412 ms P-R-T Axes : 000 -20 210 degrees QTc Int : 453 ms Atrial fibrillation. Cannot rule out Anterior infarct , age undetermined T wave abnormality, consider lateral ischemia Abnormal ECG When compared with ECG of 23-MAR-2017 06:52, (Unconfirmed) No significant change was found Confirmed by Mart ELLIOTT, Roni Joseph ([id number]) on 03/25/2017 6:40:02 AM
[2017-03-24] MEDS: ALDACTONE PO SCH ×2 (09:05→21:37)
[2017-03-24] MEDS: LANOXIN PO SCH (09:05)
[2017-03-24] MEDS: LASIX IV SCH ×2 (09:05→21:37)
[2017-03-24] MEDS: VENOFER IV SCH (09:05)
[2017-03-24] MEDS: CYMBALTA PO SCH ×2 (09:05→21:36)
[2017-03-24] MEDS: PROTONIX 80 MG in NS 80 ML IV SCH (09:06)
[2017-03-24] MEDS: THIAMINE 100 MG in NS 50 ML IV SCH (16:44)
[2017-03-24] MEDS: ATIVAN IV PRN (21:42)
[2017-03-25] MEDS: CARAFATE LIQUID PO SCH ×4 (04:58→19:50)
[2017-03-25] MEDS: LOPRESSOR PO SCH ×4 (04:58→22:06)
--- NOTE | 2017-03-25 06:25 | EKG Report ---
Test Performed on : 03/25/2017 05:32:41 AM Test Reason : Heart Failure Admission; afib Blood Pressure : / mmHG Vent. Rate : 066 BPM Atrial Rate : 051 BPM P-R Int : 000 ms QRS Dur : 086 ms QT Int : 382 ms P-R-T Axes : 000 -28 207 degrees QTc Int : 400 ms Atrial fibrillation. with a competing junctional pacemaker. ST \T\ T wave abnormality, consider anterior ischemia Abnormal ECG When compared with ECG of 24-MAR-2017 05:37, (Unconfirmed) No significant change was found Confirmed by Mart ELLIOTT, Roni Joseph ([id number]) on 03/25/2017 6:42:17 AM
[2017-03-25 06:33] LABS: AGAP 9; BUN 8 mg/dL (8-22); CALCIUM 8.9 mg/dL (8.8-10.2); CHLORIDE 97 mmol/L (98-107); COSMO 273; POTASSIUM 3.9 mmol/L (3.5-5.1); SODIUM 138 mmol/L (136-145); TCO2 32 mmol/L (25-35)
[2017-03-25] MEDS: SYNTHROID PO SCH (06:34)
[2017-03-25 06:41] LABS: BASO% 0.7 % (0.0-0.8); EOS# 0.24 X1000 (0.0-0.7); EOS% 5.7 % (0.0-10.0); HEMATOCRIT 29.8 % (37.0-47.0); HEMOGLOBIN 8.3 g/dL (12.0-16.0); LYMPH# 1.03 X1000 (1.2-3.4); LYMPH% 24.5 % (20.5-51.1); MANUAL DIFF NEEDED? YES; MCH 18.8 PG (27-31); MCHC 27.9 g/dL (33-37); MCV 67.6 FL (81-99); MONO# 0.84 X1000 (0.11-0.59); MPV 9.7 FL (7.4-10.4); NEUT% 49.1 % (42.2-75.2); PLT 181 X1000 (130-400); RBC 4.41 XMIL (4.2-5.4)
[2017-03-25 06:49] LABS: LYMPHS 18 % (21-51); MONO 6 % (1-9); NRBC 2 % (0-0)
[2017-03-25 06:50] LABS: HYPOCHROM 1+; POLYCHROM OCCASIONAL
[2017-03-25 06:51] LABS: TARGET CELLS OCCASIONAL
[2017-03-25] MEDS: LASIX IV SCH (10:34)
[2017-03-25] MEDS: VENOFER IV SCH (10:34)
[2017-03-25] MEDS: LANOXIN PO SCH (10:34)
[2017-03-25] MEDS: CYMBALTA PO SCH ×2 (10:35→22:05)
[2017-03-25] MEDS: ALDACTONE PO SCH (10:36)
[2017-03-25] MEDS ORDERED: SODIUM CHLORIDE 0.9% 10 ML ONE (13:36)
[2017-03-25] MEDS: PROTONIX IV SCH (16:15)
[2017-03-25] MEDS: THIAMINE 100 MG in NS 50 ML IV SCH (19:02)
[2017-03-25] MEDS: ATIVAN IV PRN (22:05)
[2017-03-26] MEDS: LOPRESSOR PO SCH ×4 (05:35→20:10)
[2017-03-26 05:36] LABS: BASO% 1.6 % (0.0-0.8); EOS# 0.24 X1000 (0.0-0.7); EOS% 6.4 % (0.0-10.0); HEMATOCRIT 28.3 % (37.0-47.0); HEMOGLOBIN 7.9 g/dL (12.0-16.0); LYMPH# 1.07 X1000 (1.2-3.4); LYMPH% 28.6 % (20.5-51.1); MANUAL DIFF NEEDED? YES; MCH 19.1 PG (27-31); MCHC 27.9 g/dL (33-37); MCV 68.4 FL (81-99); MONO# 0.77 X1000 (0.11-0.59); MONO% 20.6 % (1.7-9.3); MPV 8.8 FL (7.4-10.4); NEUT% 42.8 % (42.2-75.2); PLT 156 X1000 (130-400); RBC 4.14 XMIL (4.2-5.4)
[2017-03-26] MEDS: CARAFATE LIQUID PO SCH ×4 (05:36→20:10)
[2017-03-26] MEDS: ALDACTONE PO SCH ×3 (05:36→20:10)
[2017-03-26] MEDS: LASIX IV SCH ×2 (05:36→16:49)
[2017-03-26] MEDS: PROTONIX IV SCH ×2 (05:36→16:50)
[2017-03-26] MEDS: SYNTHROID PO SCH ×2 (05:45→06:46)
[2017-03-26 05:52] LABS: AGAP 12; BUN 9 mg/dL (8-22); CALCIUM 8.4 mg/dL (8.8-10.2); CHLORIDE 98 mmol/L (98-107); COSMO 275; POTASSIUM 3.9 mmol/L (3.5-5.1); SODIUM 139 mmol/L (136-145); TCO2 29 mmol/L (25-35)
[2017-03-26 07:02] LABS: BANDS 4 % (0-1); EOS 6 % (1-10); LYMPHS 18 % (21-51); MONO 14 % (1-9)
[2017-03-26 07:03] LABS: HYPOCHROM 2+
--- NOTE | 2017-03-26 09:01 | Diag Imaging Result Doc PS360 ---
EXAM: CHEST-PORTABLE HISTORY: dyspnea TECHNIQUE: [place] upright AP COMPARISON: 03/23/2017. FINDINGS: The lungs are well expanded. Sternal wires and surgical clips are present. The heart is enlarged. The vessels are not distended. No plural effusions identified. No consolidation. IMPRESSION: Cardiomegaly but no congestive failure. Electronically signed by Jose Daniel Rosa 03/26/2017 8:59 AM
[2017-03-26] MEDS: CYMBALTA PO SCH ×2 (09:32→20:10)
[2017-03-26] MEDS: VENOFER IV SCH (09:33)
[2017-03-26] MEDS: LANOXIN PO SCH (09:33)
[2017-03-26] MEDS: TYLENOL PO PRN (09:40)
[2017-03-26] MEDS ORDERED: SODIUM CHLORIDE 0.9% 10 ML ONE (11:26)
[2017-03-26] MEDS: ATIVAN IV PRN ×2 (16:45→20:22)
[2017-03-26] MEDS: THIAMINE 100 MG in NS 50 ML IV SCH (17:37)
[2017-03-27] MEDS: LOPRESSOR PO SCH ×4 (01:35→20:05)
[2017-03-27] MEDS: CARAFATE LIQUID PO SCH ×4 (01:35→20:05)
[2017-03-27] MEDS: SYNTHROID PO SCH ×2 (05:14→06:28)
[2017-03-27] MEDS: LASIX IV SCH (05:14)
[2017-03-27] MEDS: PROTONIX IV SCH ×2 (05:14→17:41)
[2017-03-27 05:43] LABS: BASO% 0.8 % (0.0-0.8); EOS# 0.21 X1000 (0.0-0.7); EOS% 5.4 % (0.0-10.0); HEMATOCRIT 30.7 % (37.0-47.0); HEMOGLOBIN 8.6 g/dL (12.0-16.0); IMM GRAN# 0.02 X1000 (0.0-0.04); IMM GRAN% 0.5 % (0.0-0.5); LYMPH# 1.06 X1000 (1.2-3.4); LYMPH% 27.2 % (20.5-51.1); MANUAL DIFF NEEDED? YES; MCH 19.2 PG (27-31); MCV 68.5 FL (81-99); MONO# 0.85 X1000 (0.11-0.59); MONO% 21.8 % (1.7-9.3); NEUT% 44.3 % (42.2-75.2); PLT 190 X1000 (130-400); RBC 4.48 XMIL (4.2-5.4)
[2017-03-27 05:53] LABS: AGAP 10; BUN 12 mg/dL (8-22); CALCIUM 9.2 mg/dL (8.8-10.2); CHLORIDE 97 mmol/L (98-107); COSMO 277; SODIUM 139 mmol/L (136-145); TCO2 32 mmol/L (25-35)
[2017-03-27 06:59] LABS: BANDS 6 % (0-1); EOS 2 % (1-10); HYPOCHROM 2+; LYMPHS 16 % (21-51); MONO 8 % (1-9)
[2017-03-27] MEDS: ALDACTONE PO SCH ×2 (09:04→20:05)
[2017-03-27] MEDS: CYMBALTA PO SCH ×2 (09:04→20:05)
[2017-03-27] MEDS: LANOXIN PO SCH (09:05)
[2017-03-27] MEDS ORDERED: SODIUM CHLORIDE 0.9% INJ PRN (09:11)
[2017-03-27] MEDS: ATIVAN IV PRN (13:03)
[2017-03-27] MEDS: THIAMINE 100 MG in NS 50 ML IV SCH (17:42)
[2017-03-28] MEDS: CARAFATE LIQUID PO SCH ×2 (02:00→10:03)
[2017-03-28] MEDS: LOPRESSOR PO SCH ×2 (02:00→10:02)
[2017-03-28] MEDS: PROTONIX IV SCH (05:21)
[2017-03-28] MEDS: SYNTHROID PO SCH ×2 (05:21→06:16)
[2017-03-28 05:54] LABS: HEMATOCRIT 31.2 % (37.0-47.0); HEMOGLOBIN 8.9 g/dL (12.0-16.0); MCH 19.6 PG (27-31); MCHC 28.5 g/dL (33-37); MCV 68.7 FL (81-99); MPV 8.9 FL (7.4-10.4); RBC 4.54 XMIL (4.2-5.4)
[2017-03-28 06:22] LABS: AGAP 14; BUN 12 mg/dL (8-22); CALCIUM 9.3 mg/dL (8.8-10.2); CHLORIDE 95 mmol/L (98-107); COSMO 270; POTASSIUM 3.7 mmol/L (3.5-5.1); SODIUM 135 mmol/L (136-145); TCO2 26 mmol/L (25-35)
[2017-03-28 06:29] LABS: ALBUMIN 3.7 g/dL (3.5-5.0); DIRECT BILIRUBIN 0.4 mg/dL (0.00-0.20); TOTAL BILIRUBIN 0.96 mg/dL (0.20-1.00); TOTAL PROTEIN 6.6 g/dL (6.3-8.3)
[2017-03-28] MEDS ORDERED: LASIX PO SCH (09:00)
[2017-03-28] MEDS: LANOXIN PO SCH (10:01)
[2017-03-28] MEDS: CYMBALTA PO SCH (10:01)
[2017-03-28] MEDS: ALDACTONE PO SCH (10:03)
[2017-03-28] MEDS: ATIVAN IV PRN (10:04)
[2017-03-28 16:23] VITALS: BP 139/58
== END 2017-03-28 16:37 | disposition home health service (06) ==
LOC: SUPCPDRO → ED 13:49 → ICU 17:18 → 4N 03-24 15:13
PROVIDERS: ATTEND Internal Medicine

== ENCOUNTER 2019-03-23 12:55 | Inpatient (IN) ==
--- NOTE | 2019-03-23 13:23 | EKG Report ---
Test Performed on : 03/23/2019 1:10:16 PM Test Reason : ER Blood Pressure : / mmHG Vent. Rate : 069 BPM Atrial Rate : 063 BPM P-R Int : 000 ms QRS Dur : 086 ms QT Int : 378 ms P-R-T Axes : 000 -13 100 degrees QTc Int : 405 ms Atrial fibrillation. Nonspecific T wave abnormality Abnormal ECG When compared with ECG of 26-MAR-2018 13:06, QT has shortened Unconfirmed Result
[2019-03-23 13:38] LABS: BASO# 0.04 X1000 (0.0-0.2); BASO% 0.7 % (0.0-0.8); EOS% 3.7 % (0.0-10.0); HEMATOCRIT 39.4 % (37.0-47.0); HEMOGLOBIN 12.2 g/dL (12.0-16.0); IMM GRAN# 0.01 X1000 (0.0-0.04); IMM GRAN% 0.2 % (0.0-0.5); LYMPH# 1.13 X1000 (1.2-3.4); LYMPH% 20.9 % (20.5-51.1); MCH 27.4 PG (27-31); MCV 88.3 FL (81-99); MONO# 0.69 X1000 (0.11-0.59); MONO% 12.8 % (1.7-9.3); MPV 9.3 FL (7.4-10.4); NEUT# 3.34 X1000 (1.4-6.5); NEUT% 61.7 % (42.2-75.2); PLT 215 X1000 (130-400); RBC 4.46 XMIL (4.2-5.4); RDW 12.9 % (11.5-14.5); WBC 5.41 X1000 (4.8-10.8)
[2019-03-23 13:59] LABS: AGAP 13; ALBUMIN 4.7 g/dL (3.5-5.0); ALKALINE PHOSPHATASE 121 U/L (32-104); BUN 11 mg/dL (8-22); CALCIUM 10.1 mg/dL (8.8-10.2); CHLORIDE 103 mmol/L (98-107); CK PROFILE 62 U/L (24-173); COSMO 283; CREATININE 0.6 mg/dL (0.5-0.9); ESTIMATED GFR > 60; GLUCOSE 111 mg/dL (70-104); GOT 35 U/L (10-30); GPT 23 U/L (10-36); POTASSIUM 4.3 mmol/L (3.5-5.1); SODIUM 142 mmol/L (136-145); TCO2 26 mmol/L (25-35); TOTAL PROTEIN 8.4 g/dL (6.3-8.3)
--- NOTE | 2019-03-23 14:19 | Diag Imaging Result Doc PS360 ---
EXAM: CT HEAD W/O CONTRAST INDICATION: tia TECHNIQUE: This exam was performed using automated exposure control, adjustment of mA or kV according to patient size, and/or use of iterative reconstruction technique. COMPARISON: 03/25/2018 FINDINGS: There is mild patchy low attenuation in the periventricular and subcortical white matter suggesting very mild microangiopathy, stable. There is no definite acute infarct given the limited sensitivity of CT versus MRI. There is no discrete intracranial mass, mass effect, or intracranial hemorrhage. The surrounding soft tissues and bony structures are essentially unremarkable. IMPRESSION: Stable mild chronic appearing white matter changes. No definite acute intracranial pathology by CT. Electronically signed by Mango Browning 03/23/2019 2:17 PM
--- NOTE | 2019-03-23 14:37 | Diag Imaging Result Doc PS360 ---
EXAM: CHEST-2 VIEWS INDICATION: cough TECHNIQUE: 2 views COMPARISON: 07/19/2017 FINDINGS: There is vague consolidation at the medial left lower lung zone that partially obscures the left heart border suggesting developing pneumonia. There is evidence of prior granulomatous disease, stable. There is no discrete pleural fluid collection or pneumothorax. Mediastinal clips, sternal wires, and a prosthetic heart valve are noted cardiac silhouette is borderline prominent but stable. IMPRESSION: Vague consolidation at the medial left lower lung zone likely representing pneumonia. Electronically signed by Mango Browning 03/23/2019 2:34 PM
--- NOTE | 2019-03-23 16:58 | Vascular Study Report ---
EXAM: Carotid Ultrasound INDICATION: tia TECHNIQUE: COMPARISON: None. FINDINGS: Right: There is extensive atherosclerotic calcification at the carotid bifurcation on grayscale imaging. The peak systolic velocity measures 64, 104, 77, 78, 100, 69, and 244 cm/s at the right subclavian artery, CCA, bifurcation, proximal ICA, mid ICA, distal ICA, and ECA, respectively. There is antegrade flow in the vertebral artery. The carotid ratio is 0.96. This indicates stenosis of between 0% to 39%. Left: There is extensive atherosclerotic calcification involving the common carotid artery and the carotid bifurcation extending into the left carotid bulb on grayscale imaging. The peak systolic velocity measures 88, 98, 123, 138, 113, 133, and 198 cm/s at the left subclavian artery, CCA, bifurcation, proximal ICA, mid ICA, distal ICA, and ECA, respectively. There is antegrade flow in the vertebral artery. The carotid ratio is 1.41. This indicates stenosis between 40% and 59%. IMPRESSION: Extensive atherosclerotic disease bilaterally with calcification. Mild stenosis of the right proximal ICA and moderate stenosis of the left proximal ICA based on Doppler flow dynamics. Electronically signed by Mango Browning 03/23/2019 4:56 PM
[2019-03-23 17:02] LABS: INR 0.93; PROTIME 12.9 Seconds (11.0-16.0)
[2019-03-23 17:03] LABS: PTT 33.2 Seconds (22.3-41.8)
--- NOTE | 2019-03-23 18:06 | ECHO REPORT ---
ORDER DATE: 03/23/2019 INDICATION: TIA, status post aortic valve replacement, atrial fibrillation. SUMMARY OF M-MODE MEASUREMENTS: Left ventricle end diastole: 4.3 cm. Left ventricle end systole: 2.8 cm. Posterior wall: 1.1. Interventricular septum: 1.2. Left atrium: At least 5 cm. Aortic root: Cannot be properly measured. There is too much acoustic artifact. SUMMARY OF 2-DIMENSIONAL IMAGIN. Left ventricular function is normal. Ejection fraction is estimated at 55% to 60%. There is borderline concentric LVH. 2. The mitral valve shows a mild to moderate degree of regurgitation. The patient is in atrial fibrillation. 3. Pulsed wave Doppler of mitral inflow shows a single filling wave. 4. The tricuspid valve shows a moderate degree of regurgitation. Pulmonary systolic pressure estimated at 79-84 mmHg. The inferior vena cava is at the upper limits of normal, borderline enlarged. 5. The pulmonic valve shows a mild degree of regurgitation. 6. The aortic valve is a mechanical valve. The maximum gradient is estimated at 53 mmHg and mean gradient at 29 mmHg. The LVOT VTI divided by the aortic valve VTI is about 0.3. That is the dimensionless index. That indicates that there is no obstruction. Color flow mapping of the aortic valve shows a mild degree of regurgitation. That is probably physiologic. 7. The atria are markedly dilated, especially the left. 8. There is no pericardial effusion. 9. The right-sided chambers are moderately enlarged, especially the right atrium. 10.Agitated saline was injected twice. There was optimal opacification of the right-sided chambers. 11.There is evidence of shunting from right to left with crossing of bubbles suggesting the present of a patent foramen ovale. SUMMARY: This study shows: 1. Excellent left ventricular systolic function. 2. Significant enlargement of both atria, especially the left. 3. Probably normally functioning mechanical aortic valve. Maximum gradient is 53 mmHg with a mean gradient of 29 mmHg. The dimensionless index is about 0.3. 4. Significant pulmonary hypertension estimated at 79-84 mmHg. 5. There is a suggestion of patent foramen ovale with [id number] shunting of bubbles. Clinical correlation is strongly recommended. Consideration should be given to performing a transesophageal echocardiogram at some time. cc: MD Abelardo Condon MD MTDD
[2019-03-23] MEDS ORDERED: XARELTO PO ONE (18:58)
[2019-03-23] MEDS ORDERED: NS 1,000 ML IV ONE (20:26)
[2019-03-23] MEDS ORDERED: PATIENT'S OWN MED PO SCH ×5 (21:00)
[2019-03-23] MEDS ORDERED: BUSPAR PO PRN (22:54)
--- NOTE | 2019-03-24 00:49 | HISTORY AND PHYSICAL ---
CHIEF COMPLAINT: Stroke symptoms. HISTORY OF PRESENT ILLNESS: The patient is a 74-year-old female who unfortunately has had a very difficult recent medical past. She has recently had a valve replacement in [place] and several of her medications were changed. She was told to stop her Xarelto. Today, she was at [facility] and she dropped her purse 3 times from her left hand. She started having some slurred speech. Symptoms got better so therefore she went and had her hair fixed. While getting her hair fixed, she noted that she has some left arm numbness and tingling, started having some trouble holding her mouth correctly, started having slurred speech again and, therefore, she came to the ER. Dr. Wang had called [place] to inquire about transfer on 3 different occasions. Each time he was declined. The family does not want her transferred to [facility]. REVIEW OF SYSTEMS: As noted above. She currently notes that her tingling in her left arm and leg has resolved. The speech is still slurred. Denies any trouble swallowing. Denies cough, congestion. Denies any confusion or headaches. Denies chest pains or palpitations. Denies shortness of breath. Denies dysuria, urinary frequency, urgency, hesitancy, polyuria, polydipsia, constipation, melena, hematochezia. PAST MEDICAL HISTORY: Significant for atrial fibrillation, cardiac arrhythmias, coronary artery disease, congestive heart failure, hypertension. She has had a heart valve replacement, history of COPD, pneumonia, sleep apnea, history of seizures. She has got hypothyroidism, glaucoma. She has had coronary artery bypass grafting. She has had gastric bypass, BTL, cataract surgery, cholecystectomy and a recent heart valve replacement. FAMILY HISTORY: Noncontributory. SOCIAL HISTORY: She does not smoke or drink. She is , is retired. Lives at home in [place]. Is cared for by her daughter. ALLERGIES: No known drug allergies. MEDICATIONS: Lasix 40, Lipitor 80, Synthroid 50, Remeron 30, aspirin 81, naltrexone due to previous alcoholism, Norvasc 5, BuSpar p.r.n., Plavix, Coreg twice daily 6.25, Repatha, Centrum Silver and spironolactone. PHYSICAL EXAMINATION: VITAL SIGNS: Reviewed. Blood pressure 130-155 systolic, heart rate 80s, respiratory 20. GENERAL: Patient is very pleasant. She is lying in the bed. She is in no respiratory distress. HEENT: Normocephalic, atraumatic. JEANNETTE. NECK: Supple. CARDIOVASCULAR: Regular rate. No appreciable dysrhythmia. CHEST: Clear and unlabored. ABDOMEN: Soft, nondistended. EXTREMITIES: She is noted to move all extremities. No current edema. NEUROLOGIC: She is awake, alert, very pleasant, does have flattening of the right side of her face. Has some slurred speech compared to her baseline. LABORATORIES: Reviewed and stable CBC, CMP. ASSESSMENT: 1. Acute cerebrovascular accident. She currently has some slurring of her speech. 2. High cholesterol. 3. Hypertension. 4. Known coronary artery disease. 5. Hypothyroidism. PLAN: We are going to continue her in the hospital currently. We will continue neuro checks every hour. If her symptoms worsen, we will again call [place] to inquire about transfer. cc: Faheem Hassan MD
--- NOTE | 2019-03-24 05:44 | PROGRESS NOTE ---
DATE: 03/24/2019 SUBJECTIVE: The patient notes that she slept okay last night. She has no new complaints. No new neurologic issues. PHYSICAL EXAMINATION: Vital Signs: Vitals signs reviewed and temperature 98 degrees, pulse 68, respiratory rate 20, BP 135-155 systolic/66 diastolic. General: The patient is awake this morning. She is in no respiratory distress. She still has some slurring of her speech, but no change from her exam last night. No more neurologic issues currently. No weakness. The numbness and tingling in her left side is still resolved. HEENT: Normocephalic. Neck: Supple. Cardiovascular: Regular rate. No murmurs. Chest: Clear. Abdomen: Soft. Extremities: Moves all extremities. Neurologic: No focal changes from last night's exam. ASSESSMENT: 1. Acute CVA. 2. Congestive heart failure. 3. Atrial fibrillation. 4. Hypertension. 5. Known coronary artery disease. 6. High cholesterol. 7. Hypothyroidism. 8. History of alcohol abuse, currently sober and stable for the last several months. PLAN: We will continue the patient in the hospital today given the severity of her chronic illnesses and will follow. We will get Physical Therapy involved. She seems to be tolerating a regular diet without any issues. cc: Faheem Hassan MD
[2019-03-24] MEDS: SYNTHROID PO SCH (06:51)
[2019-03-24] MEDS: NORVASC PO SCH (09:34)
[2019-03-24] MEDS: COREG PO SCH ×2 (09:34→20:59)
[2019-03-24] MEDS: ASPIRIN PO SCH (09:34)
[2019-03-24] MEDS: LASIX PO SCH (09:34)
[2019-03-24] MEDS: LANOXIN PO SCH (09:34)
[2019-03-24] MEDS: REVIA PO SCH (09:34)
[2019-03-24] MEDS: ALDACTONE PO SCH ×2 (09:35→20:59)
[2019-03-24] MEDS: TRINTELLIX PO SCH (09:35)
[2019-03-24] MEDS: PLAVIX PO SCH (09:35)
[2019-03-24] MEDS: PATIENT'S OWN MED PO SCH (17:51)
[2019-03-24 20:50] LABS: BILIRUBIN URINE NEGATIVE (NEGATIVE); BLOOD URINE NEGATIVE (NEGATIVE); CLARITY CLEAR (CLEAR); COLOR YELLOW; GLUCOSE URINE NEGATIVE (NEGATIVE); KETONE URINE NEGATIVE (NEGATIVE); LEUKOCYTES URINE 1+ (NEGATIVE); NITRITE URINE POSITIVE (NEGATIVE); PH URINE 6.5; PROTEIN URINE NEGATIVE (NEGATIVE); SP GRAVITY URINE 1.005; UROBILINOGEN URINE NORMAL
[2019-03-24] MEDS ORDERED: REMERON PO SCH (21:00)
[2019-03-24] MEDS ORDERED: LIPITOR PO SCH (21:00)
[2019-03-24 21:07] LABS: URINE BACTERIA 1+ /HFP; URINE CAST NONE SEEN /LPF; URINE CRYSTAL NONE SEEN /HPF; URINE EPITHELIAL CELLS <10 /HPF (<10); URINE YEAST NONE SEEN /HPF
[2019-03-24 21:08] LABS: URINE SOURCE CLEAN CATCH
[2019-03-25] MEDS: SYNTHROID PO SCH (06:03)
[2019-03-25] MEDS: LANOXIN PO SCH (10:45)
[2019-03-25] MEDS: COREG PO SCH (10:46)
[2019-03-25] MEDS: LASIX PO SCH (10:46)
[2019-03-25] MEDS: REVIA PO SCH (10:46)
[2019-03-25] MEDS: ASPIRIN PO SCH (10:46)
[2019-03-25] MEDS: ALDACTONE PO SCH (10:46)
[2019-03-25] MEDS: NORVASC PO SCH (10:46)
[2019-03-25] MEDS: PLAVIX PO SCH (10:47)
[2019-03-25] MEDS: TRINTELLIX PO SCH (10:47)
[2019-03-25] MEDS: PATIENT'S OWN MED PO SCH (10:47)
[2019-03-25 13:56] VITALS: BP 125/83
--- NOTE | 2019-03-26 12:50 | DISCHARGE SUMMARY ---
ADMISSION DATE: 03/23/2019 DISCHARGE DATE: 03/25/2019 DISCHARGE DIAGNOSES: 1. Urinary tract infection. 2. Acute cerebrovascular accident. 3. Known coronary artery disease. 4. Known valve dysfunction with a recent aortic valve replacement. CONSULTATIONS: None. PROCEDURES: None. BRIEF HOSPITAL COURSE: Patient is a 74-year-old female who presented to the hospital with stroke- like symptoms that had resolved and recurred the same day. [facility] was called and felt that nothing needed to be done. We also spoke to Cardiology who again felt as though she was on the appropriate treatment as well. She was admitted to the hospital to watch over the next 36 hours to ensure the symptoms were not going to worsen. Thankfully, overall, she is stable. Symptoms have actually started improving. She does have slight dysarthric speech. DISPOSITION: Patient will be discharged home to follow up with the office in 1 week. No other changes are made on her chronic home medications. TIME SPENT: Greater than 30 minutes was spent in total care. cc: Faheem Hassan MD
[2019-03-30] MEDS ORDERED: PATIENT'S OWN MED SUBQ SCH (09:00)
--- NOTE | 2019-04-03 01:17 | PROVIDER DOCUMENTATION ---
This chart was entered by Pearl Browning Scribe, acting as scribe for Abelardo Wang MD. HPI-Neurological Disorder - General Chief Complaint: Stroke-Like Symptoms Stated Complaint: STROKE LIKE SX Time Seen by Provider: 03/23/19 13:45 Source: patient, family Allergies/Adverse Reactions: Patient Allergies Allergy/AdvReac Type Severity Reaction Status Date / Time No Known Allergies Allergy Verified 01/19/18 15:08 Home Medications: Home Medication List Medication Instructions Recorded Confirmed Last Taken Type Furosemide [Lasix] 40 mg PO DAILY #30 tablet 03/28/17 03/23/19 01/19/18 Rx ATORVAstatin [Lipitor] 80 mg PO QHS 08/22/17 03/23/19 03/22/19 History Digoxin 0.125 mg PO DAILY 08/22/17 03/23/19 03/23/19 History Levothyroxine [Synthroid] 50 microgm PO DAILY@0700 08/22/17 03/23/19 03/23/19 History Aspirin 81 mg PO DAILY 01/19/18 03/23/19 03/23/19 History Mirtazapine [Remeron] 30 mg PO HS 01/19/18 03/23/19 03/22/19 History Naltrexone [Revia] 50 mg PO DAILY #30 tab 01/23/18 03/23/19 03/23/19 Rx Amlodipine Besylate [Norvasc] 5 mg PO DAILY 03/23/19 03/23/19 03/23/19 History Buspirone [Buspar] 10 mg PO TID 03/23/19 03/23/19 03/23/19 History Carvedilol 6.25 mg PO BID 03/23/19 03/23/19 03/23/19 History Clopidogrel [Plavix] 75 mg PO DAILY 03/23/19 03/23/19 03/23/19 History Evolocumab [Repatha Syringe] 1 syringe SQ DIRECTED 03/23/19 03/23/19 03/16/19 History Multivitamins/Minerals [Centrum 1 ea PO DAILY 03/23/19 03/23/19 03/23/19 History Silver] Nitroglycerin [Nitrostat] 0.4 mg SUBLINGUAL PRN PRN 03/23/19 03/23/19 Unknown History Potassium 99 mg PO DAILY 03/23/19 03/23/19 Unknown History Spironolactone 25 mg PO BID 03/23/19 03/23/19 03/23/19 History Vortioxetine Hydrobromide 10 mg PO DAILY 03/23/19 03/23/19 03/23/19 History [Trintellix] - History of Present Illness-Neuro Nature of Presenting Problem: 74 yowf c/o poss stroke. pt sts she was getting hair cut and started having slurred speech, left sided weakness, left arm numbness and tingling, left mouth tingling and had trouble holding wallet. family rpts on arrival to [place], pt had mild confusion. pt ahs hx of afib, chf, aortic valve replacement in 12-29. denies dm, mi and ckd. Dr. Hassan is pcp, Dr. padilla is pt's cardiac dr. pt has family hx of cva/tia. Review of Systems - Adult - REVIEW OF SYSTEMS - ADULT Constitutional: reports: no symptoms reported. denies: fever, fatique, night sweats Eyes: reports: no symptoms reported Ears, Nose, Mouth & Throat: reports: no symptoms reported Cardiovascular: reports: no symptoms reported Respiratory: reports: no symptoms reported Gastrointestinal: reports: no symptoms reported Genitourinary: reports: no symptoms reported Musculoskeletal: reports: muscle weakness (left sided). denies: frequent leg cramps, joint pain, joint swelling Integumentary: reports: no symptoms reported Neurological: reports: see HPI, numbness (left arm), paresthesia (left arm and left side of mouth), slurred speech. denies: dizziness/vertigo, headache/ migraines, loss of balance Psychiatric: reports: no symptoms reported Endocrine: reports: no symptoms reported Hematologic/Lymphatic: reports: no symptoms reported Allergic/Immunologic: reports: no symptoms reported All Other Systems: Reviewed and Negative Past History - Adult - PAST MEDICAL HISTORY-ADULT Review of Records: reports: Old Records Reviewed, Nursing Assessment Review, Medications Reviewed, Social history reviewed & non-contributory. Major Childhood Illnesses: reports: denies history Cardiovascular: reports: A-Fib, arrhythmia, CAD, CHF, HTN, heart valve problem, hyperlipidemia. denies: [place], [place] Respiratory: reports: COPD, pneumonia, sleep apnea Gastrointestinal: reports: denies history Obstetrical/Gynecological: reports: denies history Genitourinary: reports: denies history Musculoskeletal: reports: denies history Neurological: reports: denies history, Seizures/Epilepsy Psychiatric: reports: depression Endocrine/Immune: reports: thyroid disorder (hypo) Other Conditions: reports: denies history, cataract/glaucoma - PRIOR SURGERIES/PROCEDURES Surgical/Procedure History: reports: CABG, cholecystectomy, BTL, gastric bypass, other (cataract removal; aortic valve replacement) - IMMUNIZATION STATUS Childhood Immunizations: See Nurse Assessment Flu Vaccine: See Nurse Assessment - FAMILY HISTORY Family History: reviewed, not pertinent - SOCIAL HISTORY Smoking: non-smoker Substance Use: alcohol Alcohol Use Frequency: occasionally Physical Exam- Neurological - Physical Exam-Neuro Initial Vital Signs Reviewed: Yes General Appearance: appears well, alert, no apparent distress, other (some mild confusion but is able to answer questions). negative: cachetic, lethargic, obtunded Eye Exam: bilateral eye: normal inspection, PERRL, EOMI HENMT: normocephalic/atraumatic, moist mucous membranes, normal ENT inspection Head Injury: no evidence of injury Neck: non-tender, full range of motion, supple, normal inspection Respiratory: chest non-tender, lungs clear, normal breath sounds Cardiovascular: normal peripheral pulses, regular rate, rhythm Abdominal Exam: normal bowel sounds, non tender, soft Lymphatic: no adenopathy Peripheral Pulses: dorsalis-pedis (R): 2+, dorsalis-pedis (L): 2+ Extremity: normal range of motion, non-tender, no calf tenderness, normal capillary refill, pelvis stable, pulse deficit (left dorsal foot, norm rt foot), other (bilat pitting +1). negative: normal inspection, deformity, erythema, inflammation host/hostess head Exam: normal hearing, normal speech, PERRL. negative: abnormal speech, facial asymmetry, facial droop Coordination/Gait: normal finger to nose. negative: ABN nose to finger (R), ABN nose to finger (L) Motor/Sensory: no motor deficit, no sensory deficit. negative: sensory deficit Neurologic: grossly normal, no motor/sensory deficits Integumentary: normal color, normal turgor, warm/dry Psych/Mental Status: normal mood/affect, normal thought content, normal thought process, oriented x 3 - Glascow Coma Scale Best Eye Response: (4) open spontaneously Best Verbal Response: (5) oriented Best Motor Response: (6) obeys commands Total Glascow Score: 15 Progress - PLAN OF CARE/RESULTS Progress/Plan/Lab Results: Orders Category Date Time Status Admit - [facility] Routine AdmDCTranf 03/23/19 20:26 Active Saline Loc NOW Care 03/23/19 20:26 Completed Vital Signs Order Q 8-HR ASSESS Care 03/23/19 20:26 Active Z-Document. for Tele Applied ORDERED Care 03/23/19 20:26 Completed CHEST-2 VIEWS [RAD] Stat Exams 03/23/19 13:[address] HEAD W/O CONTRAST [CT] Stat Exams 03/23/19 13:25 Completed CBC WITH ELECTRONIC DIFF [HEME] Stat Lab 03/23/19 13:14 Completed CK PROFILE [SP CHEM] Stat Lab 03/23/19 13:14 Completed COMPREHENSIVE METABOLIC PANEL [CHEM] Stat Lab 03/23/19 13:14 Completed PT [PROTIME WITH INR] [COAG] Stat Lab 03/23/19 13:14 Completed PTT [COAG] Stat Lab 03/23/19 13:14 Completed 0.9% Sodium Chloride Inj [Ns] 1,000 ml Med 03/23/19 20:26 Discontinued IV 125 mls/hr Patient's Own Med Med 03/23/19 21:00 Discontinued 1 each PO HS Patient's Own Med Med 03/23/19 21:00 Discontinued 1 each PO HS Patient's Own Med Med 03/23/19 21:00 Discontinued 1 each PO HS Patient's Own Med Med 03/23/19 21:00 Discontinued 1 each PO HS Patient's Own Med Med 03/23/19 21:00 Discontinued 1 each PO HS Rivaroxaban [Xarelto] Med 03/23/19 18:58 Discontinued 10 mg PO NOW ONE Telemetry [OM.EQ] Routine Oth 03/23/19 20:26 Active Carotid Ultrasound Stat Ther 03/23/19 13:24 Completed EKG [EKG] Routine Ther 03/23/19 Draft Echo Spec/Color Doppler Stat Ther 03/23/19 13:23 Completed Transfer/Admit Order [TRANSFER] Routine Transfer 03/23/19 18:47 Completed Result Diagrams: 03/23/19 13:14 03/23/19 13:14 - REASSESSMENT Reassessment #1 Time Reassessed: 16:55 Status: worsening (after carotid doppler, pt began to have slurred speech and facial weakness Left side) - EKG 1 Time of EKG reading by physician:: 13:10 EKG Read and Signed by:: Abelardo Wang EKG Interpretation (*Must complete 3 of following elements*): Abnormal Rate: 69 Rhythm: afib Jensen: normal QRS: normal ST Wave: non-specific ST changes (nonspecific t wave abnroamlity) - XRAY 1 XRAY Study: Chest Impression: Abnormal, See EMR Report ( Signed EXAM: CHEST-2 VIEWS INDICATION: cough TECHNIQUE: 2 views COMPARISON: 07/19/2017 FINDINGS: There is vague consolidation at the medial left lower lung zone that partially obscures the left heart border suggesting developing pneumonia. There is evidence of prior granulomatous disease, stable. There is no discrete pleural fluid collection or pneumothorax. Mediastinal clips, sternal wires, and a prosthetic heart valve are noted cardiac silhouette is borderline prominent but stable. IMPRESSION: Vague consolidation at the medial left lower lung zone likely representing pneumonia. Electronically signed by Mango Browning 03/23/2019 2:34 PM) - CT/MRI 1 CT Study: Head Impression: See EMR Report (EXAM: CT HEAD W/O CONTRAST INDICATION: tia TECHNIQUE: This exam was performed using automated exposure control, adjustment of mA or kV according to patient size, and/or use of iterative reconstruction technique. COMPARISON: 03/25/2018 FINDINGS: There is mild patchy low attenuation in the periventricular and subcortical white matter suggesting very mild microangiopathy, stable. There is no definite acute infarct given the limited sensitivity of CT versus MRI. There is no discrete intracranial mass, mass effect, or intracranial hemorrhage. The surrounding soft tissues and bony structures are essentially unremarkable. IMPRESSION: Stable mild chronic appearing white matter changes. No definite acute intracranial pathology by CT. Electronically signed by Mango Browning 03/23/2019 2:17 PM) - ULTRASOUND (By Radiology) 1 US Study: other (carotid) Impression: See EMR Report ( Patient: BRANDI PADILLA ANNADM Date: 03/23/19MR#: [id number] : 5Acct#: [id number] Family Physician: Faheem Hassan MD EXAM: Carotid Ultrasound INDICATION: tia TECHNIQUE: COMPARISON: None. FINDINGS: Right: There is extensive atherosclerotic calcification at the carotid bifurcation on grayscale imaging. The peak systolic velocity measures 64, 104, 77, 78, 100, 69, and 244 cm/s at the right subclavian artery, CCA, bifurcation, proximal ICA, mid ICA, distal ICA, and ECA, respectively. There is antegrade flow in the vertebral artery. The carotid rati o is 0.96. This indicates stenosis of between 0% to 39%. Left: There is extensive atherosclerotic calcification involving the common carotid artery and the carotid bifurcation extending into the left carotid bulb on grayscale imaging. The peak systolic velocity measures 88, 98, 123, 138, 113, 133, and 198 cm/s at the left subclavian artery, CCA, bifurcation, proximal ICA, mid ICA, distal ICA, and ECA, respectively. There is antegrade flow in the vertebral artery. The carotid ratio is 1.41. This indicates stenosis between 40% and 59%. IMPRESSION: Extensive atherosclerotic disease bilaterally with calcification. Mild stenosis of the right proximal ICA and moderate stenosis of the left pro ximal ICA based on Doppler flow dynamics. Electronically signed by Mango Browning 03/23/2019 4:56 PM) - CONSULTS/PCP/HOSPITALIST Notification #1 *Consult/PCP/Hospitalist*: [facility] Time Discussed: 16:13 Consult Disposition: other (MRI head on pt) #2 Consult: [facility] Time Discussed: 17:48 Consult Disposition: other (confirming pt information) Departure - Departure Date of Disposition Decision: 03/23/19 Time of Disposition Decision: 18:39 DIAGNOSIS: TIA on medication, Atrial fibrillation Stroke Qualifiers: CVA mechanism: unspecified Qualified Code(s): I63.9 - Cerebral infarction, unspecified Disposition: ADMITTED INPATIENT 09 Certified Medical Emergency: Emergent Condition: Stable - Critical Care Note This patient required my direct & personal management of CC.: Yes Total Time (mins): 60 Critical Care Statement: This patient required my direct personal management to treat or rule out processes, the absence of which, could potentiallly result in sudden, clinically significant life or limb threatening deterioration. Attestation - Physician/ ASUNCION Attestation Patient care was provided by Advanced Practice Provider:: No The physician spent face to face time with patient:: Yes Advanced Practice Provider documentation review:: Supervising physician onsite and consulted in the evaluation and care of this patient. The physician did have a face to face encounter with the patient. - NIH Stroke Scale NIH Type: Acute Change Evaluation Level of Consciousness: 0-Alert LOC Questions (ask month and age): 0-Answers Both Correctly LOC Commands (ask to open & close eyes;make a fist, let go): 0-Obeys Both Correctly Best Gaze (horizontal eye movement): 0-Normal Visual (use finger movement, counting or visual threat): 0-No Visual Loss Facial Palsy (show teeth or raise eyebrows & close eyes tght: 0-Symmetrical Movement Motor Function-left arm: 0-Normal Motor Function-right arm: 0-Normal Motor Function-left le-Normal Motor Function-right le-Normal Limb Ataxia([id number], or heel to estes): 0-No Ataxia Sensory(pin prick to face,arms,trunk,legs-compare side/side): 0-No Ataxia Best Language(name item/read sentence.Ex-Down to Earth): 1-Mild to Moderate Aphasia Dysarthria(Pt read words or say words Ex.Mama,Tip-Top,Thanks: 1-Mild-Mod Slurring Words Extinction and Inattention: 0-Normal NIH Total Score: 2 NIH Scale Untestable Comment: initially, NIH was a 0 but after carotid doppler score changed to 2. This chart was documented by the indicated scribe, (Pearl Browning, Scribe) and accurately reflects the services I performed and decisions made by me, Abelardo Wang MD, as attested by the provider's signature.
== END 2019-03-25 15:58 | disposition home or self-care (01) | DRG 65 ==
LOC: P.ED 12:55 → P.MEDSURG 19:49
PROVIDERS: ADMIT Family Medicine; ATTEND Family Medicine